=== PATIENT | female | born 1985 | race Caucasian/White ===

== ENCOUNTER 2017-06-02 16:06 | Emergency (ER) | payer SELFPAY ==
[2017-06-02] MEDS ORDERED: NS 500 ML IV ONE (16:59)
[2017-06-02] MEDS ORDERED: ONDANSETRON 4 MG/2 ML VIAL IVP ONE (17:06)
[2017-06-02 17:12] LABS: % IMMATURE GRANULYOCYTES 0.5 % (0.0-1.1); ABSOLUTE IMMATURE GRANULOCYTES 0.05 10^3/uL (0.00-0.10); ADD DIFF? NO; ADD MORPH? NO; ADD SCAN? NO; ATYPICAL LYMPHOCYTE FLAG 0 (0-99); FRAGMENT RBC FLAG 0 (0-99); HEMATOCRIT 39.6 % (38.0-47.0); HEMOGLOBIN 13.7 g/dL (12.6-16.3); LEFT SHIFT FLG 0 (0-99); LIPEMIA HEMOLYSIS FLAG 90 (0-99); MEAN CELL HEMOGLOBIN 30.4 pg (27.9-34.1); MEAN CELL HEMOGLOBIN CONCENTR. 34.6 g/dL (32.4-36.7); MEAN CELL VOLUME 87.8 fL (81.5-99.8); MEAN PLATELET VOLUME 9.5 fL (8.7-11.7); PLATELET CLUMPS FLAG 0 (0-99); PLATELET COUNT 270 10^3/uL (150-400); RED BLOOD CELL COUNT 4.51 10^6/uL (4.18-5.33); RED CELL DISTRIBUTION WIDTH 12.7 % (11.5-15.2)
[2017-06-02 17:25] LABS: ANION GAP 17 mEq/L (8-16); CALCIUM 10.1 mg/dL (8.5-10.4); CARBON DIOXIDE 19 mEq/l (22-31); CHLORIDE 100 mEq/L (97-110); CREATININE 0.5 mg/dL (0.6-1.0); GLOMERULAR FILTRATION RATE > 60; GLUCOSE 95 mg/dL (70-100); POTASSIUM 3.7 mEq/L (3.5-5.2); SODIUM 136 mEq/L (134-144)
--- NOTE | 2017-06-02 17:27 | EDPHY ---
H & P Stated Complaint: 7 wks /n/v shaky l sided cramping with vomiting Time Seen by Provider: 06/02/17 16:37 HPI/ROS: Chief Complaint: Nausea vomiting, abdominal cramping HPI: 31-year-old who is 7 weeks 4 days based on ultrasound presenting with a day and half a worsening nausea and vomiting. Has episode of some hand and foot cramping with some numbness around her mouth earlier after an episode of vomiting. Has some generalized fatigue. Some mild headache. She also has some mild lower pelvic cramping. No vaginal bleeding. Is having some normal discharge she has been having associated with this . Denies any past medical history. No fevers or chills. No chest pain or shortness of breath. No urinary urgency or frequency. ROS: 10 point Review of Systems is negative except as noted in the HPI. PMH: Denies Social History: No smoking, no alcohol, no recreational drug use Family History: non-contributory Physical Exam: Gen: Awake, Alert, No Distress HEENT: Nose: no rhinorrhea Eyes: PERRLA, EOMI Mouth: Moist mucosa Neck: Supple, no JVD Chest: nontender, lungs clear to auscultation Heart: S1, S2 normal, no murmur Abd: Soft, non-tender, no guarding Back: no CVA tenderness, no midline tenderness Ext: no edema, non-tender Skin: no rash Neuro: CN II-XII intact, Sensation grossly intact, Strength 5/5 in bilateral upper and lower extremities - Personal History LMP (Females 10-55): Current Tetanus/Diphtheria Vaccine: Yes - Medical/Surgical History Hx Asthma: No Hx Chronic Respiratory Disease: No Hx Diabetes: No Hx Cardiac Disease: No Hx Renal Disease: No Hx Cirrhosis: No Hx Alcoholism: No Hx HIV/AIDS: No Hx Splenectomy or Spleen Trauma: No Other PMH: denies - Social History Smoking Status: Never smoked Constitutional: Initial Vital Signs Temperature (C) 36.8 C 06/02/17 16:10 Heart Rate 78 06/02/17 16:10 Respiratory Rate 22 H 06/02/17 16:10 Blood Pressure 95/81 H 06/02/17 16:10 O2 Sat (%) 100 06/02/17 16:10 O2 Delivery Mode Room Air Allergies/Adverse Reactions: No Known Allergies Allergy (Unverified 06/02/17 16:09) Home Medications: Medication Instructions Recorded Ondansetron Odt [Zofran Odt 4 mg 4 mg PO Q4 PRN #10 tab 06/02/17 (*)] 06/02/17 Medical Decision Making ED Course/Re-evaluation: Patient is improved. No further vomiting. She does have some ketones in her urine. She received 2 L normal saline here. She is tolerating p. o.. Will discharge with prescription for Zofran, follow up with OBGYN. - Data Points Laboratory Results: Laboratory Results 06/02/17 16:49 06/02/17 16:49 06/02/17 06/02/17 06/02/17 19:47 16:49 16:49 WBC 10.50 10^3/uL H 10^3/uL (3.80-9.50) RBC 4.51 10^6/uL 10^6/uL (4.18-5.33) Hgb 13.7 g/dL g/dL (12.6-16.3) Hct 39.6 % % (38.0-47.0) MCV 87.8 fL fL (81.5-99.8) MCH 30.4 pg pg (27.9-34.1) MCHC 34.6 g/dL g/dL (32.4-36.7) RDW 12.7 % % (11.5-15.2) Plt Count 270 10^3/uL 10^3/uL (150-400) MPV 9.5 fL fL (8.7-11.7) Neut % (Auto) 84.7 % H % (39.3-74.2) Lymph % (Auto) 8.8 % L % (15.0-45.0) [place] % (Auto) 5.6 % % (4.5-13.0) Eos % (Auto) 0.1 % L % (0.6-7.6) Baso % (Auto) 0.3 % % (0.3-1.7) Nucleat RBC Rel Count 0.0 % % (0.0-0.2) Absolute Neuts (auto) 8.90 10^3/uL H 10^3/uL (1.70-6.50) Absolute Lymphs (auto) 0.92 10^3/uL L 10^3/uL (1.00-3.00) Absolute Monos (auto) 0.59 10^3/uL 10^3/uL (0.30-0.80) Absolute Eos (auto) 0.01 10^3/uL L 10^3/uL (0.03-0.40) Absolute Basos (auto) 0.03 10^3/uL 10^3/uL (0.02-0.10) Absolute Nucleated RBC 0.00 10^3/uL 10^3/uL (0-0.01) Immature Gran % 0.5 % % (0.0-1.1) Immature Gran # 0.05 10^3/uL 10^3/uL (0.00-0.10) Sodium 136 mEq/L mEq/L (134-144) Potassium 3.7 mEq/L mEq/L (3.5-5.2) Chloride 100 mEq/L mEq/L (97-110) Carbon Dioxide 19 mEq/l L mEq/l (22-31) Anion Gap 17 mEq/L H mEq/L (8-16) BUN 10 mg/dL mg/dL (7-23) Creatinine 0.5 mg/dL L mg/dL (0.6-1.0) Estimated GFR > 60 Glucose 95 mg/dL mg/dL (70-100) Calcium 10.1 mg/dL mg/dL (8.5-10.4) Urine Color YELLOW Urine Appearance HAZY Urine pH 5.0 (5.0-7.5) Ur Specific [place] 1.023 (1.002-1.030) Urine Protein NEGATIVE (NEGATIVE) Urine Ketones 2+ H (NEGATIVE) Urine Blood NEGATIVE (NEGATIVE) Urine Nitrate NEGATIVE (NEGATIVE) Urine Bilirubin NEGATIVE (NEGATIVE) Urine Urobilinogen NEGATIVE EU EU (0.2-1.0) Ur Leukocyte Esterase NEGATIVE (NEGATIVE) Urine Glucose NEGATIVE (NEGATIVE) Medications Given: Discontinued Medications Sodium Chloride (Ns) 500 mls @ 1,000 mls/hr IV ONCE ONE PRN Reason: Protocol Stop: 06/02/17 17:28 Last Admin: 06/02/17 17:16 Dose: 500 mls Sodium Chloride (Ns) 1,000 mls @ 0 mls/hr IV ONCE ONE PRN Reason: Wide Open Stop: 06/02/17 18:16 Last Admin: 06/02/17 18:55 Dose: 1,000 mls Ondansetron HCl (Zofran) 4 mg IVP EDNOW ONE Stop: 06/02/17 17:07 Last Admin: 06/02/17 17:16 Dose: 4 mg Departure - Departure Disposition: Home, Routine, Self-Care Clinical Impression: Hyperemesis gravidarum Condition: Good Instructions: Hyperemesis Gravidarum (ED) Additional Instructions: Make sure to drink fluids sitting all day long. He eat frequent small meals. Follow up with her OBGYN in 2-3 days for re-evaluation. Return to the emergency department for uncontrolled nausea vomiting, worsening pain, worsening vaginal bleeding, or any other concerns. Referrals: [facility] [Other] - As per Instructions Prescriptions: Ondansetron Odt [Zofran Odt 4 mg (*)] 4 mg PO Q4 PRN #10 tab PRN Reason: nausea
[2017-06-02] MEDS ORDERED: NS 1,000 ML IV ONE (18:15)
[2017-06-02 19:57] LABS: COLOR YELLOW; LEUKOCYTE ESTERASE,URINE NEGATIVE (NEGATIVE); NITRITE,URINE NEGATIVE (NEGATIVE)
[2017-06-02 20:33] VITALS: BP 108/63; PULSE 83; RESP 18; TEMP 96.8; O2SAT 99
== END 2017-06-02 20:32 | disposition home or self-care (01) ==
DX: O21.1 Hyperemesis gravidarum with metabolic disturbance (principal); Z3A.01 Less than 8 weeks gestation of pregnancy
CPT/HCPCS: 96374; J2405

== ENCOUNTER 2017-06-20 12:35 | Emergency (ER) | payer SELFPAY ==
[2017-06-20 12:46] VITALS: RESP 18; TEMP 98.2; O2SAT 98
[2017-06-20] MEDS ORDERED: NS 1,000 ML IV ONE (13:13)
[2017-06-20] MEDS ORDERED: ONDANSETRON DISINTEGRATING 4 MG TAB PO ONE (13:13)
--- NOTE | 2017-06-20 13:19 | EDPHY ---
H & P Stated Complaint: 11 WKS /HYPEREMESIS Time Seen by Provider: 06/20/17 12:51 Source: Patient Exam Limitations: No limitations - Personal History LMP (Females 10-55): Current Tetanus/Diphtheria Vaccine: Yes - Medical/Surgical History Hx Asthma: No Hx Chronic Respiratory Disease: No Hx Diabetes: No Hx Cardiac Disease: No Hx Renal Disease: No Hx Cirrhosis: No Hx Alcoholism: No Hx HIV/AIDS: No Hx Splenectomy or Spleen Trauma: No Other PMH: denies - Social History Smoking Status: Never smoked Constitutional: Initial Vital Signs Temperature (C) 36.8 C 06/20/17 12:44 Heart Rate 88 06/20/17 12:44 Respiratory Rate 18 06/20/17 12:44 Blood Pressure 118/82 H 06/20/17 12:44 O2 Sat (%) 98 06/20/17 12:44 O2 Delivery Mode Room Air Allergies/Adverse Reactions: No Known Allergies Allergy (Verified 06/20/17 12:43) Home Medications: Medication Instructions Recorded Ondansetron Odt [Zofran Odt 4 mg 4 mg PO Q4 PRN #10 tab 06/02/17 (*)] 06/02/17 Dicyclomine 06/20/17 Departure - Departure Referrals: NONE *PRIMARY CARE P,. [Primary Care Provider] - As per Instructions
--- NOTE | 2017-06-20 13:24 | EDPHY ---
H & P Stated Complaint: 11 WKS /HYPEREMESIS Time Seen by Provider: 06/20/17 12:51 HPI/ROS: CHIEF COMPLAINT: Hyperemesis gravidarum HISTORY OF PRESENT ILLNESS: The patient is a 31-year-old female who comes to the emergency department complaining of nausea and vomiting that began last night. She is unable to keep fluids down. She reports that she is 11 weeks with her 2nd . She did not have any issues with her 1st . She was seen here 2 weeks ago I treated with Zofran. She since saw her primary [place] [facility] and has maintained on Zofran and Diclegis. She traveled home from [place] yesterday and states that she has gotten overly dehydrated and cannot maintain control of her symptoms. No fever. No abdominal pain. No diarrhea. No chest pain or shortness of breath. REVIEW OF SYSTEMS: Constitutional: denies: chills, fever, recent illness, recent injury EENTM: denies: blurred vision, double vision, nose congestion Respiratory: denies: cough, shortness of breath Cardiac: denies: chest pain, irregular heart rate, lightheadedness, palpitations Gastrointestinal/Abdominal: See HPI denies: abdominal pain, diarrhea, blood streaked stools Genitourinary: denies: dysuria, frequency, hematuria, pain Musculoskeletal: denies: joint pain, muscle pain Skin: denies: lesions, rash, jaundice, bruising Neurological: denies: headache, numbness, paresthesia, tingling, dizziness, weakness Hematologic/Lymphatic: denies: blood clots, easy bleeding, easy bruising Immunologic/allergic: denies: HIV/AIDS, transplant EXAM: GENERAL: Well-appearing, well-nourished and in no acute distress. HEAD: Atraumatic, normocephalic. EYES: Pupils equal round and reactive to light, extraocular movements intact, sclera anicteric, conjunctiva are normal. ENT: TMs normal, nares patent, oropharynx clear without exudates. Moist mucous membranes. NECK: Normal range of motion, supple without lymphadenopathy or JVD. LUNGS: Breath sounds clear to auscultation bilaterally and equal. No wheezes rales or rhonchi. HEART: Regular rate and rhythm without murmurs, rubs or gallops. ABDOMEN: Soft, nontender, slightly enlarged uterus, normoactive bowel sounds. No guarding, no rebound. No masses appreciated. BACK: No CVA tenderness, no spinal tenderness, step-offs or deformities EXTREMITIES: Normal range of motion, no pitting or edema. No clubbing or cyanosis. NEUROLOGICAL: Cranial nerves II through XII grossly intact. Normal speech, normal gait. 5/5 strength, normal movement in all extremities, normal sensation PSYCH: Normal mood, normal affect. SKIN: Warm, dry, normal turgor, no visible rashes or lesions. Source: Patient Exam Limitations: No limitations - Personal History LMP (Females 10-55): Current Tetanus/Diphtheria Vaccine: Yes - Medical/Surgical History Hx Asthma: No Hx Chronic Respiratory Disease: No Hx Diabetes: No Hx Cardiac Disease: No Hx Renal Disease: No Hx Cirrhosis: No Hx Alcoholism: No Hx HIV/AIDS: No Hx Splenectomy or Spleen Trauma: No Other PMH: denies - Family History Significant Family History: No pertinent family hx - Social History Smoking Status: Never smoked Alcohol Use: Sober Drug Use: None Constitutional: Initial Vital Signs Temperature (C) 36.8 C 06/20/17 12:44 Heart Rate 88 06/20/17 12:44 Respiratory Rate 18 06/20/17 12:44 Blood Pressure 118/82 H 06/20/17 12:44 O2 Sat (%) 98 06/20/17 12:44 O2 Delivery Mode Room Air Allergies/Adverse Reactions: No Known Allergies Allergy (Verified 06/20/17 12:43) Home Medications: Medication Instructions Recorded Ondansetron Odt [Zofran Odt 4 mg 4 mg PO Q4 PRN #10 tab 06/02/17 (*)] 06/02/17 Dicyclomine 06/20/17 Medical Decision Making ED Course/Re-evaluation: 3:05 p.m. the patient is feeling much better. She is tolerating p. o.. We will continue to observe. She has not urinated. 3:55 p.m. the patient is tolerating p.o.. She feels completely better and is eager to go home. Her urinalysis is just been sent off. She has received 2 L of fluid. She is taking p.o.. She has medications she needs at home and does not need a new prescription. Differential Diagnosis: Partial list of the Differential diagnosis considered include but were not limited to; hyperemesis gravidarum, dehydration and although unlikely based on the history and physical exam, I also considered gastritis, food poisoning, obstruction, ischemia, appendicitis, volvulus, threatened miscarriage. I discussed these differential diagnoses and the plan with the patient as well as the usual and expected course. The patient understands that the diagnosis is provisional and that in medicine we are not always correct and that further workup is often warranted. Usual and customary warnings were given. All of the patient's questions were answered. The patient was instructed to return to the emergency department should the symptoms at all worsen or return, otherwise to followup with the physician as we discussed. - Data Points Laboratory Results: Laboratory Results 06/20/17 13:50 06/20/17 13:50 Medications Given: Discontinued Medications Sodium Chloride (Ns) 1,000 mls @ 0 mls/hr IV EDNOW ONE; Wide Open PRN Reason: Protocol Stop: 06/20/17 13:14 Last Admin: 06/20/17 13:53 Dose: 1,000 mls Ondansetron HCl (Zofran Odt) 8 mg PO EDNOW ONE Stop: 06/20/17 13:14 Last Admin: 06/20/17 13:52 Dose: 8 mg Departure - Departure Disposition: Home, Routine, Self-Care Clinical Impression: Moderate hyperemesis gravidarum Condition: Fair Instructions: Hyperemesis Gravidarum (ED) Referrals: NONE *PRIMARY CARE P,. [Primary Care Provider] - As per Instructions [facility] [Other] - As per Instructions
[2017-06-20 14:11] LABS: % IMMATURE GRANULYOCYTES 0.7 % (0.0-1.1); ABSOLUTE IMMATURE GRANULOCYTES 0.06 10^3/uL (0.00-0.10); ADD DIFF? NO; ADD MORPH? NO; ADD SCAN? NO; ATYPICAL LYMPHOCYTE FLAG 0 (0-99); FRAGMENT RBC FLAG 0 (0-99); HEMATOCRIT 36.9 % (38.0-47.0); HEMOGLOBIN 12.7 g/dL (12.6-16.3); LEFT SHIFT FLG 0 (0-99); LIPEMIA HEMOLYSIS FLAG 90 (0-99); MEAN CELL HEMOGLOBIN 30.6 pg (27.9-34.1); MEAN CELL HEMOGLOBIN CONCENTR. 34.4 g/dL (32.4-36.7); MEAN CELL VOLUME 88.9 fL (81.5-99.8); MEAN PLATELET VOLUME 9.3 fL (8.7-11.7); PLATELET CLUMPS FLAG 0 (0-99); PLATELET COUNT 261 10^3/uL (150-400); RED BLOOD CELL COUNT 4.15 10^6/uL (4.18-5.33); RED CELL DISTRIBUTION WIDTH 13.3 % (11.5-15.2)
[2017-06-20 14:21] LABS: ANION GAP 12 mEq/L (8-16); CALCIUM 9.3 mg/dL (8.5-10.4); CARBON DIOXIDE 20 mEq/l (22-31); CHLORIDE 101 mEq/L (97-110); CREATININE 0.4 mg/dL (0.6-1.0); GLOMERULAR FILTRATION RATE > 60; GLUCOSE 82 mg/dL (70-100); POTASSIUM 3.8 mEq/L (3.5-5.2); SODIUM 133 mEq/L (134-144)
[2017-06-20 16:16] VITALS: BP 116/68; PULSE 78
== END 2017-06-20 16:16 | disposition home or self-care (01) ==
DX: O21.1 Hyperemesis gravidarum with metabolic disturbance (principal); E86.9 Volume depletion, unspecified; Z3A.11 11 weeks gestation of pregnancy

== ENCOUNTER 2017-09-02 19:10 | Observation (INO) | payer MEDICAID ==
--- NOTE | 2017-09-02 20:43 | OBGCSDC ---
General Delivery Information - General Info : 3 Para: 1 Abortions: 1 Admission Date: 09/02/17 - Hospital Course Antepartum: 09/02/17 20:40 Patient is a 31 year old at 20 5/7 weeks gestation who presents for vaginal bleeding was at work and noticed bleeding and was sent over by ambulance. +FM no leaking of fluid. Ultrasound done today: Cervical length 3.5 cm closed anterior placenta no previa no abruption. Intrapartum: 09/02/17 20:42 Discharge home Off of work for two days Follow up in clinic on Monday Strict return precautions given Discharge Information - Discharge Information Condition: Good Instruction/Follow Up: See Instruction Sheet (Monday follow up)
== END 2017-09-02 20:50 | disposition home or self-care (01) ==
LOC: FLD 19:10
PROVIDERS: ADMIT Obstetrics & Gynecology; ATTEND Obstetrics & Gynecology
DX: O46.92 Antepartum hemorrhage, unspecified, second trimester (principal); Z3A.20 20 weeks gestation of pregnancy
CPT/HCPCS: 76815; G0378

== ENCOUNTER 2017-10-09 11:50 | Observation (INO) | payer MEDICAID | END 2017-10-09 13:02 | disposition home or self-care (01) | LOC: FLD 11:50 | PROVIDERS: ADMIT Obstetrics & Gynecology; ATTEND Obstetrics & Gynecology | DX: R10.9 Unspecified abdominal pain (principal); O09.892 Supervision of other high risk pregnancies, second trimester; Z3A.26 26 weeks gestation of pregnancy | CPT/HCPCS: G0378 ==

== ENCOUNTER 2017-12-26 17:24 | Emergency (ER) | payer MEDICAID ==
[2017-12-26 17:30] VITALS: RESP 18; TEMP 97.9
--- NOTE | 2017-12-26 18:00 | EDPHY ---
H & P Time Seen by Provider: 12/26/17 17:37 HPI/ROS: Chief complaint. Cough, congestion HPI. 32-year-old female presents emergency department with 2 day history of sore throat, congestion, dry cough, low-grade fever, achiness. She has been exposed to flu. She did not get a flu shot. Patient's 37 weeks . No abdominal pain or vaginal bleeding. Otherwise no recent travel. She does not have shortness of breath or chest discomfort. Patient has been using over-the- counter herbal medication with inadequate relief. ROS Constitutional. Low-grade fever Eyes. no problems with vision ENT. Sore throat and nasal congestion Cardiovascular. no chest pain Respiratory. No shortness of breath but cough Abdominal. no abdominal pain, no nausea/vomiting, no diarrhea . no problems urinating MS. no calf pain/swelling, no neck/back pain, no joint pain Skin. no rash Lymph. no swollen glands Neuro. no headache, no dizziness, no difficulty walking or with speech Past Medical/Surgical History: Healthy Social History: , nonsmoker, no alcohol Smoking Status: Never smoked Physical Exam: General Appearance: Alert pleasant well-developed female mild distress vital signs are stable Eyes: Pupils equal and round no pallor or injection. ENT, tympanic membranes are normal. Pharynx mildly injected without exudate. Mucous membranes are moist Respiratory: There are no retractions. Mild inspiratory expiratory rhonchi but essentially clear lungs Cardiovascular: Regular rate and rhythm. Gastrointestinal: Abdomen is gravid at 37 weeks just station but nontender Neurological: Awake and alert, sensory and motor exams grossly normal. Skin: Warm and dry, no rashes. Musculoskeletal: Neck is supple nontender. Extremities symmetrical, full range of motion. Psychiatric: Patient is oriented X 3, there is no agitation. Constitutional: Initial Vital Signs Temperature (C) 36.6 C 12/26/17 17:28 Heart Rate 96 12/26/17 17:28 Respiratory Rate 18 12/26/17 17:28 Blood Pressure 135/72 H 12/26/17 17:28 O2 Sat (%) 99 12/26/17 17:28 O2 Delivery Mode Room Air Allergies/Adverse Reactions: No Known Allergies Allergy (Verified 12/26/17 17:27) Home Medications: Medication Instructions Recorded 06/02/17 Albuterol Hfa Anes Only [Proair 2 puffs IH QID PRN #1 mdi 12/26/17 Hfa Icu (*)] Iron 12/26/17 Medical Decision Making Procedures: Flu swab ED Course/Re-evaluation: Re-evaluation at 6:50 p.m.. Stable. The patient her and I discussed laboratory evaluation, treatment plan including criteria for return and importance of follow-up and further evaluation. They expressed understanding and agreement Differential Diagnosis: I considered viral syndrome, influenza. Patient has no clinical findings for pneumonia or sepsis. - Data Points Laboratory Results: 12/26/17 18:00 Nasal Influenza A PCR NEGATIVE FOR FLU A (NEGATIVE) Nasal Influenza B PCR NEGATIVE FOR FLU B (NEGATIVE) RSV (PCR) NEGATIVE FOR RSV (NEGATIVE) Departure - Departure Disposition: Home, Routine, Self-Care Clinical Impression: Viral syndrome Condition: Good Instructions: Viral Syndrome (ED) Additional Instructions: Drink plenty of fluids and stay hydrated. Vaporizer or humidifier. Albuterol inhaler using 2 puffs every 4-6 hours to help with breathing and cough. May use Tylenol for achiness and fever. Return for worsening symptoms. Recheck in 2-3 days if not improved Referrals: NONE *PRIMARY CARE P,. [Primary Care Provider] - As per Instructions Prescriptions: Albuterol Hfa Anes Only [Proair Hfa Icu (*)] 2 puffs IH QID PRN #1 mdi PRN Reason: Short Of Breath/Dyspnea
[2017-12-26 19:19] VITALS: BP 127/73; PULSE 105; O2SAT 97
== END 2017-12-26 19:21 | disposition home or self-care (01) ==
DX: B34.9 Viral infection, unspecified (principal)

== ENCOUNTER 2018-01-09 12:45 | Inpatient (IN) | payer MEDICAID ==
[2018-01-09] MEDS ORDERED: EPSOM SALT 454 GM TP PRN (14:24)
[2018-01-09] MEDS ORDERED: OLIVE OIL 118 ML BTL MISC PRN (14:24)
[2018-01-09] MEDS ORDERED: LR 1,000 ML IV PRN (14:24)
[2018-01-09] MEDS ORDERED: TERBUTALINE SULFATE 1 MG/ML VIAL IV PRN (14:24)
[2018-01-09] MEDS ORDERED: OXYTOCIN 20 UNIT in LR 1,000 ML IV PRN (14:24)
[2018-01-09] MEDS ORDERED: MISOPROSTOL 200 MCG TAB PR PRN (14:24)
[2018-01-09] MEDS ORDERED: LIDOCAINE 1% 300 MG/30 ML SDV ONE (14:48)
[2018-01-09] MEDS ORDERED: TERBUTALINE SULFATE 1 MG/ML VIAL ONE (14:49)
[2018-01-09] MEDS ORDERED: MISOPROSTOL 200 MCG TAB ONE (14:49)
[2018-01-09] MEDS ORDERED: OLIVE OIL 118 ML BTL ONE (14:49)
[2018-01-09] MEDS ORDERED: OXYTOCIN 10 UNIT/ML VIAL ONE (14:49)
[2018-01-09] MEDS ORDERED: AMMONIA AROMATIC 1 EACH AMP IH ONE (14:49)
[2018-01-09 16:01] LABS: PLATELET COUNT 299 10^3/uL (150-400)
--- NOTE | 2018-01-09 17:00 | PDMN ---
Medical Necessity Medical necessity: Pt meets IP criteria; admit for Labor & Delivery; per order
[2018-01-09] MEDS: IBUPROFEN 600 MG TAB PO PRN (19:02)
[2018-01-09] MEDS ORDERED: ACETAMINOPHEN 325 MG TAB PO PRN (19:11)
[2018-01-09] MEDS ORDERED: DOCUSATE SODIUM 100 MG CAP PO PRN (19:11)
--- NOTE | 2018-01-09 19:15 | OBDEL ---
Info Type: Vaginal Presentation at Delivery: Vertex L&D Analgesia/Anesthesia Type: Local (1 % lidocaine) GBS+: No Intrapartum Medications: Generic Name Dose Route Start Last Admin Trade Name Kiana PRN Reason Stop Dose Admin Ibuprofen 600 mg 01/09/18 14:24 01/09/18 19:02 Motrin PO 07/08/18 14:23 600 mg Q6HRS PRN Administration post , inflammation Indications for Delivery: Spontaneous Labor, SROM Vaginal Delivery - Delivery Provider Delivery Physician/CNM: Kendal Boles - Labor and Delivery Onset of Contractions Date: 01/09/18 Onset of Contractions Time: 07:00 Onset of Contractions Type: Spontaneous Rupture of Membranes Date: 01/09/18 Rupture of Membranes Time: 05:00 Rupture of Membranes Type: Spontaneous Amniotic Fluid Color: Clear Dilation Complete Date: 01/09/18 Dilation Complete Time: 18:00 Placenta Delivery Date: 01/09/18 Placenta Delivery Time: 18:31 Total Hours of Labor: 11 Non-surgical Procedures: Amniotomy (of forebag) Laceration: 1st Degree (perineal and right periurethral) Repair: 4-0, Vicryl Vaginal Sponge Count Correct: Yes Vaginal Needle Count Correct: Yes Vaginal Sweep Performed: Yes EBL: 300 Delivery Comment: pt pushed very ineffectively until about last two pushes then dramatically effective. after delivery pt requested skin tag on hymenal edge removed - easily excised and 2 interrupted 4-0 vicryl used to close [place] Data EFRAIN: 01/15/18 Gestational Age: 39 week(s) and 1 day(s) James Delivery Date: 01/09/18 Delivery Time: 18:25 Sex of Infant: Male Score (1 Min): 8 Score (5 Min): 8 ICD10 Worksheet Patient Problems: Problems Problem Status Onset (spontaneous vaginal delivery) Acute
--- NOTE | 2018-01-09 20:04 | GHP ---
[f rep st] PREOP HISTORY AND PHYSICAL DATE OF ADMISSION: 01/09/2018 HISTORY UPON ADMISSION: The patient is a 32-year-old, G3, P1, A1 at 39+ weeks' gestation with an est imated due date of 01/15/2018, who presents with spontaneous rupture of membranes at 5:00 a.m. with m oisture throughout the day, with no obvious large gush. There was clear drainage in small amounts. The patient is having good movement. She was having only mild contractions, but has a history of rapid labor and minimal pushing for delivery. Upon presentation, the patient had a dry perineum and Nitrazine test was negative, but an AmniSure te st did reveal positive signs for rupture of membranes. The patient was initially felt to be closed. However, on later exam, revealed the patient was 6-7 cm dilated with a bulging bag of water with a h igh station at -2. Vertex presentation. The patient was desiring a natural approach with labor and did not want any medication. The patient's intent was to have a book coverer assisted . However, th ere were no book coverer's available for today. The patient had good progress to 9 cm dilation, but continued to have the bulging bag of water and re quested rupture of membranes. CARE: The patient has been with [facility] since 8 weeks gestation. The patient used Zofran in the first trimester for nausea. The patient has a long-term use of marijuana and is u sing that for nausea as well. The patient had negative genetic testing. At 20 weeks, the patient wa s having continued nausea and vomiting, and slightly increased palpable lymph nodes in her groin. Th dean gradually resolved. The patient tried to take iron in the for anemia; however, was bot hered quite a bit by nausea as well as constipation. The patient requested, during the , th at a skin tag that she has had on her hymenal edge be removed at the time of delivery. The patient's otherwise uncomplicated. LABS: Include maternal blood type B positive with negative antibody screen. RPR nonreactiv e. Rubella immune. Hepatitis B surface antigen negative. HIV negative. Standard genetic testing a ll negative. Verified testing normal with MSAFP negative. 1-hour Glucola was normal. Initial hemat ocrit was 32% with a check in second trimester down to 29%. This remained stable and was 30% at 34 w eeks gestation. GBS culture was negative. PAST MEDICAL HISTORY: Negative, except for history of marijuana use and low BMI at conception at 100 pounds. PAST SURGICAL HISTORY: Left breast lumpectomy under local anesthesia (it was benign), a D and E in 2 007 and odontectomy. PAST OBSTETRIC HISTORY: In 2003, a male delivered at 6 pounds 11 ounces at 38+ weeks after a 6 hour labor and 3 pushes to deliver. The patient had an uncomplicated vaginal delivery only using IV stado l. In 2007, the patient had bleeding at 18 weeks of the and was evaluated in an emergency room and told there was no heartbeat and proceeded to have a D and E. ALLERGIES: The patient has no known drug allergies. CURRENT MEDICATIONS: Only vitamins, iron as tolerated. SOCIAL HISTORY: The patient is . Lives with her boyfriend and her son. The patient has done marijuana regularly. She denies any tobacco smoking. No alcohol use during and no other drug use. PHYSICAL EXAM: GENERAL: The patient, upon admission, had minimal discomfort. This is a well-develo ped, well-nourished white female. VITAL SIGNS: All normal upon admission. The patient is afebrile. See nursing documentation for full details. LABOR DETAILS: The patient's contractions started str onger approximately 7:00 a.m. and the patient was using the tub during the day for labor comfort. Fe ernie heart tone monitoring was 130s baseline with category 1 tracing with good accelerations and good variability. No decelerations noted. When physical exam performed at approximately 1800, there was no cervix remaining and artificial rupture of membranes was performed with a forebag, with clear flui d. Head still at 0 station. ASSESSMENT: 1. Intrauterine at 39+ weeks. 2. Spontaneous rupture of membranes, in spontaneous labor. 3. GBS negative. PLAN: Patient completely dilated at 1800 and encouraged to start pushing. Expect vaginal delivery s oon. /[id number]/MODL
[2018-01-10] MEDS: IBUPROFEN 600 MG TAB PO PRN ×4 (01:07→20:14)
[2018-01-10 08:41] VITALS: O2SAT 98
--- NOTE | 2018-01-10 14:33 | OBPP ---
Progress Note Assessment/Plan: Assessment: 32 y/o PPD #1 s/p doing well. Plan: support, lanolin for nipples. Routine PPC. 01/10/18 14:34 Subjective/ Course: 01/10/18 14:29 Pt is doing well today. She has min pain just cramping with breast feeding. She is ambulating and voiding without difficulty and has min lochia. Objective: 01/09/18 15:45 Patient ABO/Rh B POSITIVE 01/09/18 15:45 Temp Pulse Resp BP Pulse Ox 36.4 C 84 16 106/73 98 01/10/18 08:00 01/10/18 08:00 01/10/18 08:00 01/10/18 08:00 01/10/18 08:00 Uterine Position/Fundal Height: Umbilicus -2 Uterine Tone: Firm Physical Exam - Physical Exam General Appearance: WD/WN, alert, no apparent distress Neck: non-tender, full range of motion, supple Respiratory: chest non-tender, lungs clear, normal breath sounds Cardiac/Chest: regular rate, rhythm Abdomen: normal bowel sounds Extremities: swelling (no), [place]'s sign (neg)
[2018-01-11] MEDS: IBUPROFEN 600 MG TAB PO PRN ×2 (05:50→12:09)
[2018-01-11 08:24] VITALS: BP 98/61; PULSE 80; RESP 17; TEMP 97.9
--- NOTE | 2018-01-11 09:13 | OBGCSDC ---
General Delivery Information - General Info : 3 Para: 2 Abortions: 0 Type: Vaginal L&D Analgesia/Anesthesia Type: Local Admission Date: 01/09/18 Labs: Patient ABO/Rh B POSITIVE 01/09/18 15:45 Hct 36.2 % (38.0-47.0) L 01/09/18 15:45 - Hospital Course : 01/10/18 14:29 Pt is doing well today. She has min pain just cramping with breast feeding. She is ambulating and voiding without difficulty and has min lochia. 01/11/18 09:12 S) Pt doing well, reports min pain and bleeding. she is ambulating and voiding without difficulty. She is . She desires discharge home today. O) VSS, afebrile constitutional: WNWF, A&Ox3 HEENT: normocephalic, atraumatic, supple Heart: RRR, No murmur Chest: CTA-B Abdomen: Soft, nontender Uterus: Firm at U-2 Lochia: Minimal rubra Perineum: Intact, healing well Extremities: Trace edema, and negative Georgia's sign Neuro: Grossly normal A) 32-year-old S/P PPD#2 P) Discharge home today Continue Pelvic rest x6wks Discussed danger signs (infection, preeclampsia, depression, heavy bleeding, etc ) RTO in 2/4/6 weeks 01/11/18 09:12 Vaginal - Delivery Provider Delivery Physician/CNM: Kendal Boles - Diagnosis Labor: Spontaneous Rupture of Membranes Type: Spontaneous Amniotic Fluid Color: Clear Laceration: 1st Degree (perineal and right periurethral) Repair: 4-0, Vicryl - Procedures Non-surgical Procedures: Amniotomy (of forebag) - Delivery Non-surgical Procedures: Amniotomy (of forebag) EBL: [address] Data EFRAIN: 01/15/18 Gestational Age: 39 week(s) and 3 day(s) James Delivery Date: 01/09/18 Delivery Time: 18:25 Sex of : Female Score (1 Min): 8 Score (5 Min): 8 Discharge Information - Discharge Information Condition: Good Instruction/Follow Up: Two Weeks, Four Weeks, Six Weeks
== END 2018-01-11 13:45 | disposition home or self-care (01) | DRG 775 ==
LOC: FLD 12:45 → OBSVTOIN 14:24 → FOB 22:51
PROVIDERS: ADMIT Obstetrics & Gynecology; ATTEND Obstetrics & Gynecology
PROC: 10907ZC Drainage of Amniotic Fluid, Therapeutic from Products of Conception, Via Natural or Artificial Opening (ICD-10-PCS; principal; 2018-01-09)
PROC: 0UQMXZZ Repair Vulva, External Approach (ICD-10-PCS; principal; 2018-01-09)
PROC: 10E0XZZ Delivery of Products of Conception, External Approach (ICD-10-PCS; principal; 2018-01-09)
PROC: 0HQ9XZZ Repair Perineum Skin, External Approach (ICD-10-PCS; principal; 2018-01-09)
DX: O70.0 First degree perineal laceration during delivery (principal); O71.82 Other specified trauma to perineum and vulva; Z3A.39 39 weeks gestation of pregnancy; Z37.0 Single live birth
CPT/HCPCS: J2590; J3105

== ENCOUNTER 2018-09-10 16:23 | Emergency (ER) | payer MEDICAID ==
--- NOTE | 2018-09-10 17:27 | EDPHY ---
H & P Stated Complaint: Cough and Cold x 3 weeks Time Seen by Provider: 09/10/18 17:27 HPI/ROS: HPI: This is a 32-year-old female who presents with Chief Complaint: Right-sided rib/chest Location: Right-sided rib/chest Quality: Pain Duration: 1 and half weeks Signs and Symptoms: no fever, no nausea, no vomiting, no diarrhea, no urinary symptoms, no chest pain, no shortness of breath, no wheezing, no cough, no sore throat, no neck stiffness, no joint pain, no swollen glands, no ear pain, no rash Timing: Acute, worse with inspiration, coughing Severity: Moderate Context: Patient is currently breast-feeding, presents with insidious onset of right lateral rib pain/chest pain that occurs with touching the area, coughing, deep breath. She is lifting her infant. She is left-hand dominant. Denies any known injury/trauma. No recent long distance travel. Denies lower extremity edema, swelling, calf pain. Denies shortness of breath, chest pain, productive cough. Modifying Factors: [id number] Tylenol without relief Comment: ROS: A comprehensive 10 system review of systems is otherwise negative aside from elements mentioned in the history of present illness. MEDICAL/SURGICAL/SOCIAL HISTORY: Medical history: Miscarriage at 18 weeks in 2008 Surgical history: Denies Social history: Never smoked. with children. Family history noncontributory. CONSTITUTIONAL: Extremely pleasant and nontoxic-appearing adult white female, awake and alert, no obvious distress HEENT: Atraumatic and normocephalic, PERRL, EOMI. Nares patent; no rhinorrhea; no nasal mucosal edema. Tympanic membranes clear. Oropharynx clear, no exudate and moist pink mucosa. Airway patent. No lymphadenopathy. No meningismus. Cardiovascular: Normal S1/S2, regular rate, regular rhythm, without murmur rub or gallop. PULMONARY/CHEST: Symmetrical and reproducible right lower ribs lateral tenderness. No crepitus. No bruising. No step-off. Clear to auscultation bilaterally. Good air movement. No accessory muscle usage. ABDOMEN: Soft, nondistended, nontender, no rebound, no guarding, no peritoneal signs, no masses or organomegaly. No CVAT. EXTREMITIES: 2/2 pulses, strength 5/5, no deformities, no clubbing, no cyanosis or edema. Negative Homans sign. No calf swelling. NEUROLOGICAL: no focal neuro deficits. GCS 15. SKIN: Warm and dry, no erythema. no rash. Good capillary refill. Source: Patient Exam Limitations: No limitations - Personal History LMP (Females 10-55): Unknown Current Tetanus Diphtheria and Acellular Pertussis (TDAP): Yes - Medical/Surgical History Hx Asthma: No Hx Chronic Respiratory Disease: No Hx Diabetes: No Hx Cardiac Disease: No Hx Renal Disease: No Hx Cirrhosis: No Hx Alcoholism: No Hx HIV/AIDS: No Hx Splenectomy or Spleen Trauma: No Other PMH: Misscarriage at 18 weeks in 2009 - Social History Smoking Status: Never smoked Constitutional: Initial Vital Signs Temperature (C) 36.7 C 09/10/18 16:45 Heart Rate 71 09/10/18 16:45 Respiratory Rate 18 09/10/18 16:45 Blood Pressure 111/79 09/10/18 16:45 O2 Sat (%) 97 09/10/18 16:45 O2 Delivery Mode Room Air Allergies/Adverse Reactions: No Known Allergies Allergy (Verified 12/26/17 17:27) Home Medications: Medication Instructions Recorded Lidocaine [Lidoderm] 1 each TP Q12 PRN #6 adh..patch 09/10/18 Medical Decision Making - Diagnostics Imaging Results: Imaging Impressions Chest X-Ray 09/10/18 17:33 Impression: Normal chest x-ray. ED Course/Re-evaluation: Vital signs reviewed and stable upon arrival. No hypoxia, respiratory distress. Chest x-ray ordered and my read via PAC shows no opacity, no effusion, no fracture, no pneumothorax. Wells criteria is low risk for PE; D-dimer ordered and negative Suspect musculoskeletal in nature. Advised supportive care. This patient was seen under the supervision of my secondary supervising physician. I evaluated care for this patient independently. Discussed this patient with Dr. Chirinos who did not see the patient. Differential Diagnosis: Chest pain including but not limited to myocardial ischemia, pulmonary embolus, chest wall pain, pleural inflammation and pulmonary infectious causes. - Data Points Laboratory Results: 09/10/18 17:35 D-Dimer < 0.27 ug/mLFEU ug/mLFEU (0.00-0.50) Departure - Departure Disposition: Home, Routine, Self-Care Clinical Impression: Chest wall muscle strain Qualifiers: Encounter type: initial encounter Qualified Code(s): S29.011A - Strain of muscle and tendon of front wall of thorax, initial encounter Condition: Good Instructions: Muscle Strain (ED), Chest Wall Pain (ED) Additional Instructions: Limit use of right upper extremity as much as possible until pain has resolved including lifting infant child. Take Tylenol 650 mg every 4 hours and/or Ibuprofen 600 mg every 8 hours with food as needed for pain. Apply Lidoderm patch every 12 hr as needed for moderate pain. Apply moist heat for 30 minutes at a time; 2-3 times per day for the next 1-2 days. Follow up with PCP in 7-10 days if symptoms persist at which time they will evaluate and recommend with you if conservative management versus further imaging is indicated. Return to the ER immediately if you experience new or worsening pain, discoloration, numbness, tingling, or any other symptoms that concern you. Referrals: Leodan Humphreys DO [Doctor of Osteopathy] - As per Instructions Prescriptions: Lidocaine [Lidoderm] 1 each TP Q12 PRN #6 adh..patch PRN Reason: Pain, Moderate
[2018-09-10 18:36] VITALS: BP 132/93
== END 2018-09-10 18:34 | disposition home or self-care (01) ==
DX: S29.011A Strain of muscle and tendon of front wall of thorax, initial encounter (principal)